=== PATIENT | male | born 1985 | race Hispanic/Latino ===

== ENCOUNTER 2018-04-12 01:38 | Observation (INO) | payer SELFPAY ==
[~2018-04-12] VITALS: Ht 177.8 cm; Wt 81.6 kg
[2018-04-12] MEDS ORDERED: IPRATROPIUM/ALBUTEROL SULFATE 3 ML SOLUTION IH ONE (02:22)
[2018-04-12] MEDS ORDERED: ALBUTEROL SULFATE 0.083% 2.5 MG/3 ML INH IH ONE ×3 (02:22→06:07)
[2018-04-12] MEDS ORDERED: DEXAMETHASONE SOD PHOSPHATE 10MG/ML 1ML VIAL ONE (02:40)
[2018-04-12] MEDS ORDERED: SODIUM CHLORIDE 0.9% 1000ML 1,000 ML IV ONE (02:40)
[2018-04-12] MEDS ORDERED: METHYLPREDNISOLONE SOD SUCC 125MG/2ML VIAL ONE (02:40)
[2018-04-12 02:43] LABS: BASOPHILS % (AUTO) 0.4 % (0.0-5.0); EOSINOPHILS % (AUTO) 8.6 % (0.0-8.0); HEMATOCRIT 46.9 % (42-54); MEAN CORPUSCULAR HEMOGLOBIN 30.9 pg (27.0-33.0); MEAN CORPUSCULAR VOLUME 88.3 fL (79-99); MONOCYTES % (AUTO) 8.7 % (3.0-13.0); NEUTROPHILS % (AUTO) 60.3 % (40.0-77.0); PLATELET COUNT (AUTO) 213 K/uL (130-400); RED BLOOD CELL COUNT(AUTO) 5.31 MIL/uL (4.50-6.20); RED CELL DISTRIBUTION WIDTH 13.4 % (11.0-15.5); WHITE BLOOD COUNT (AUTO) 8.2 K/uL (4.8-10.8)
[2018-04-12 02:56] LABS: POTASSIUM 4.2 mmol/L (3.5-5.1)
[2018-04-12 03:01] LABS: ALBUMIN 4.4 g/dL (3.5-5.0); BILIRUBIN,TOTAL 0.7 mg/dL (0.2-1.0); TOTAL PROTEIN, SERUM 7.6 g/dL (6.0-8.3)
[2018-04-12] MEDS ORDERED: ONDANSETRON HCL MDV 20ML 2 MG/ML VIAL IVP PRN (04:00)
[2018-04-12] MEDS ORDERED: ACETAMINOPHEN 325 MG TAB PO PRN (04:00)
[2018-04-12] MEDS: METHYLPREDNISOLONE SOD SUCC 125MG/2ML VIAL IVP SCH ×3 (04:00→17:08)
[2018-04-12] MEDS ORDERED: METHYLPREDNISOLONE SOD SUCC 40MG/ML 1ML ONE (06:03)
[2018-04-12 08:00] VITALS: BP 129/79
[2018-04-12 08:44] LABS: ABG BASE EXCESS -3.8 mmol/L (-2.0-3.0); ABG OXYGEN SATURATION 96.9 % (95.0-99.0); ABG PCO2 33 mmHg (35-48)
[2018-04-12] MEDS ORDERED: FAMOTIDINE 20MG TAB 20 MG TAB PO SCH (09:00)
[2018-04-12] MEDS ORDERED: ONDANSETRON HCL 4 MG/2 ML VIAL IVP PRN (09:15)
[2018-04-12] MEDS: ALBUTEROL SULFATE 0.083% 2.5 MG/3 ML INH IH SCH ×2 (10:07→13:40)
[2018-04-12 11:14] VITALS: BP 150/81
[2018-04-12 16:16] VITALS: BP 149/78
[2018-04-12] MEDS ORDERED: AZIT250T9 PO (17:02)
[2018-04-12] MEDS ORDERED: PRED20TA3 PO (17:02)
[2018-04-12] MEDS ORDERED: ALBU0.63 IH (17:02)
== END 2018-04-12 18:18 | disposition home or self-care (01) ==
LOC: EDH 01:38 → EDHIP 01:39 → 4AH 07:39
PROVIDERS: ADMIT Family Medicine; ATTEND Family Medicine
DX: J45.901 Unspecified asthma with (acute) exacerbation (principal); F17.210 Nicotine dependence, cigarettes, uncomplicated
CPT/HCPCS: 36415; 36600; 71045; 80053; 82803; 84484; 85025; 93005; 94640 ×6; 94664; 96374; 96376; 99285; G0378 ×17; J1100; J2920; J2930 ×3; J7030

== ENCOUNTER 2019-09-22 01:00 | Emergency (ER) | payer SELFPAY ==
[~2019-09-22 01:00] MED LIST: ALBU0.63 IH; AZIT250T9 PO; PRED20TA3 PO
[2019-09-22] MEDS ORDERED: HYDROXYZINE HCL 25 MG TABLET ONE (01:54)
[2019-09-22] MEDS ORDERED: DEXAMETHASONE SOD PHOSPHATE 10MG/ML 1ML VIAL ONE (01:54)
[2019-09-22] MEDS ORDERED: IBUPROFEN 200 MG TAB ONE (02:18)
== END 2019-09-22 02:50 | disposition home or self-care (01) ==
LOC: EDH 01:00
DX: L30.9 Dermatitis, unspecified (principal)
CPT/HCPCS: 96372; 99283; J1100

== ENCOUNTER 2020-09-28 02:20 | Emergency (ER) | payer OTHER | END 2020-09-28 02:38 | LOC: EDH 02:20 | DX: Z02.83 Encounter for blood-alcohol and blood-drug test (principal) | CPT/HCPCS: 36415 ==

== ENCOUNTER 2021-03-05 12:16 | Emergency (ER) | payer SELFPAY ==
[2021-03-05] MEDS ORDERED: DEXAMETHASONE SOD PHOSPHATE 10MG/ML 1ML VIAL ONE (13:06)
== END 2021-03-05 13:33 | disposition home or self-care (01) ==
LOC: EDH 12:16
DX: L30.9 Dermatitis, unspecified (principal); J45.909 Unspecified asthma, uncomplicated; Z72.0 Tobacco use
CPT/HCPCS: 96372; 99283; J1100